=== PATIENT | female | born 1960 | race American Indian/Alaskan Native ===

== ENCOUNTER 2016-11-25 12:14 | Emergency (ER) | payer MEDICAID ==
[2016-11-25] MEDS ORDERED: LIDOCAINE-MPF 1% 5 ML VIAL ONE (14:02)
[2016-11-25] MEDS ORDERED: BACITRACIN OINT TOP ONE (14:17)
== END 2016-11-25 14:31 | disposition home or self-care (01) ==
DX: S01.81XA Laceration without foreign body of other part of head, initial encounter (principal); W01.0XXA Fall on same level from slipping, tripping and stumbling without subsequent striking against object, initial encounter; Y92.009 Unspecified place in unspecified non-institutional (private) residence as the place of occurrence of the external cause; F17.200 Nicotine dependence, unspecified, uncomplicated
CPT/HCPCS: 12013; 99282; 99283; A9270

== ENCOUNTER 2017-02-07 17:12 | Outpatient (CLI) | payer MEDICAID | END 2017-02-07 17:13 | disposition home or self-care (01) | DX: B18.2 Chronic viral hepatitis C (principal) ==

== ENCOUNTER 2017-04-15 13:40 | Outpatient (CLI) | payer MEDICAID ==
[2017-04-15 13:34] LABS: INR 0.9 (0.8-1.2); PT - PROTHROMBIN TIME 9.9 secs (9.9-12.6)
[2017-04-15 13:41] LABS: ALBUMIN/GLOBULIN RATIO 1.2 (1.0-2.2); BILIRUBIN,TOTAL 0.9 mg/dL (0.2-1.0); CALCIUM 9.2 mg/dL (8.5-10.3); CREATININE 0.7 mg/dL (0.4-1.0); POTASSIUM 4.1 mmol/L (3.5-5.0); TOTAL PROTEIN 7.6 g/dL (6.7-8.2)
[2017-04-17 11:41] LABS: TEST RESULT REPORT (())
[2017-04-17 19:21] LABS: TEST RESULT REPORT (())
== END 2017-04-15 13:41 | disposition home or self-care (01) ==
LOC: LAB 13:40
PROVIDERS: ATTEND Internal Medicine Gastroenterology
DX: B18.2 Chronic viral hepatitis C (principal)
CPT/HCPCS: 36415; 80053; 81599; 82172; 82977; 83010; 83883; 85610; 86317; 86704; 87340; 87522

== ENCOUNTER 2017-08-21 15:34 | Outpatient (CLI) | payer MEDICAID ==
--- NOTE | 2017-08-22 12:27 | XRAY Report ---
LEFT SHOULDER: 08/21/2017 No comparison. INDICATION: Left shoulder pain. TECHNIQUE: Three views of the left shoulder. FINDINGS: There is severe degenerative change of the glenohumeral joint with nicg-fv-hhde joint dege neration, hypertrophic changes, and possible intraarticular debris. The AC joint appears grossly unr emarkable. Alignment is near anatomic. No acute bone findings are seen. IMPRESSION: SEVERE GLENOHUMERAL OSTEOARTHRITIS. JOB #: [id number] EXT JOB #:[id number]
== END 2017-08-21 15:35 | disposition home or self-care (01) ==
LOC: DI.N 15:34
PROVIDERS: ATTEND Family Medicine
DX: M19.012 Primary osteoarthritis, left shoulder (principal)

== ENCOUNTER 2020-11-08 22:57 | Emergency (ER) | payer MEDICAID ==
--- NOTE | 2020-11-09 00:57 | ED Physician Documentation ---
PD HPI HEENT - History obtained from History obtained from: Patient - History of Present Illness Timing - onset: How many days ago (4-5) Timing - duration: Days (4-5) Timing - details: Gradual onset, Still present Location: Tooth, Other (chin and submandibular area) Worsens: Swalllowing, Other (palpation) Associated symptoms: Facial swelling (submandibular and chin area). No: Fever, Congestion Similar symptoms before: Has not had sx before Review of Systems Constitutional: denies: Fever Nose: denies: Rhinorrhea / runny nose, Congestion Throat: denies: Sore throat Cardiac: denies: Chest pain / pressure Respiratory: denies: Dyspnea, Cough GI: denies: Nausea, Vomiting PD PAST MEDICAL HISTORY - Past Medical History Cardiovascular: None Respiratory: None Endocrine/Autoimmune: None Musculoskeletal: Osteoarthritis - Past Surgical History Past Surgical History: Yes Ortho: Hip replacement - Present Medications Home Medications: Ambulatory Orders Medication Instructions Recorded Confirmed Chlorhexidine Gluconate [Hibiclens] 10 ml TP DAILY #473 ml 02/13/16 Mupirocin 1 applic TP TID #15 oint...g. 02/13/16 Permethrin [Elimite] 60 gm TP ONCE #0 cream..g. 02/13/16 Sulfamethoxazole/Trimethoprim 1 each PO BID #14 tablet 02/13/16 [Bactrim Ds Tablet] Clindamycin [Cleocin] 300 mg PO TID 7 Days #20 capsule 11/09/20 Hydrocodone/Acetaminophen [[place] 1 each PO Q6H PRN #20 tablet 11/09/20 5-325 Tablet] - Allergies Allergies/Adverse Reactions: Allergies Allergy/AdvReac Type Severity Reaction Status Date / Time Penicillins Allergy Rash Verified 03/25/14 13:38 - Social History Does the pt smoke?: Yes Smoking Status: Current every day smoker Does the pt drink ETOH?: Yes Does the pt have substance abuse?: No - Immunizations Immunizations are current?: Yes PD ED PE NORMAL - Vitals Vital signs reviewed: Yes - General General: Alert and oriented X 3, No acute distress, Well developed/nourished - HEENT HEENT: Pharynx benign. No: Dentition benign (teeth with cavities. Lower front teeth tender to palpation. There is swelling along the gum. Submandibular area with tenderness and fullness. No swelling in anterior neck. ) - Neck Neck: Supple, no meningeal sign, No adenopathy, Other (bedside US of the submandibular area does not have any focal fluid collection, just tissue swelling. ) - Cardiac Cardiac: RRR, No murmur - Respiratory Respiratory: Clear bilaterally - Abdomen Abdomen: Soft, Non tender - Derm Derm: Normal color, Warm and dry, No rash Results - Vitals Vitals: Oxygen O2 Source Room air PD MEDICAL DECISION MAKING - ED course Complexity details: considered differential (swelling lower front gum and teeth pain, and also swelling of chin/submandibular with bedside U/S showing swelling without local abscess. ), d/w patient Departure - Departure Disposition: 01 Home, Self Care Clinical Impression: Infected dental caries Condition: Stable Record reviewed to determine appropriate education?: Yes Instructions: ED Abscess Tooth Prescriptions: Clindamycin [Cleocin] 300 mg PO TID 7 Days #20 capsule Hydrocodone/Acetaminophen [[place] 5-325 Tablet] 1 each PO Q6H PRN #20 tablet PRN Reason: Pain Comments: Rinse with antiseptic mouth rinse several times daily. Clindamycin antibiotic as directed for the next week for the infection. Tylenol or ibuprofen if needed for pains and add hydrocodone if needed for worse pain. Warm compresses to the chin periodically to improve blood flow and help fight infection. Recheck if not improving well over the next several days. Follow-up with dental clinic in the near future for more definitive care of the dental cavities that led to the infection. Discharge Date/Time: 11/09/20 01:35
[2020-11-09] MEDS ORDERED: CLINDAMYCIN 150 MG CAPSULE PO STA (01:10)
[2020-11-09] MEDS ORDERED: IBUPROFEN 600 MG TABLET PO STA (01:10)
[2020-11-09] MEDS ORDERED: HYDROcod/ACETAM 5/325 MG TABLET PO STA (01:10)
[2020-11-09 01:37] VITALS: BP 128/72
--- OUTSIDE RECORDS SUMMARY | 2020-11-09 04:56 | EXTERNAL MEDICAL SUMMARY RPT | Continuity of Care Document ---
:1960 Demographics Phone Unavailable Preferred Language Unknown Marital Status Unknown Yarsanism Affiliation Unknown Race Unknown Ethnic Group Unknown Author Organization [place] Address [address] [place] [address] Phone Care Team Providers Name Role Phone Tory Rodarte Unavailable Unavailable Darinel Hicks Unavailable Unavailable Problems date description facility 2015-01-19 10:17 UNSPECIFIED VIRAL HEPATITIS C [facility] WITHOUT HEPATIC COMA 2015-01-19 10:17 LEUKOCYTOSIS, UNSPECIFIED [facility] 2016-11-25 12:14 NICOTINE DEPENDENCE, UNSPECIFIED, [facility]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 2016-11-25 12:14 LACERATION W/O FOREIGN BODY OF OTH [facility] PART OF HEAD, INIT ENCNTR 2016-11-25 12:14 FALL SAME LEV FROM SLIP/TRIP W/O [facility] STRIKE AGAINST OBJECT, INIT 2016-11-25 12:[address] IN UNSP NON-INSTITUT [facility] (PRIVATE) RESIDENCE PLACE 2017-02-07 17:12 CHRONIC VIRAL HEPATITIS C [facility] 2017-04-15 13:40 CHRONIC VIRAL HEPATITIS C [facility] 2017-08-21 15:34 PRIMARY OSTEOARTHRITIS, LEFT [facility] SHOULDER Allergies date description facility CIPROFLOXACIN [facility] NO KNOWN ENVIRONMENTAL ALLERGIES [facility] SULFA (SULFONAMIDE ANTIBIOTICS) [facility] NO KNOWN ALLERGIES [facility] CODEINE [facility] CIPROFLOXACIN [facility] LISINOPRIL [facility] SULFAMETHOXAZOLE-TRIMETHOPRIM [facility] Penicillins [facility] NO KN[facility] SIMVASTATIN [facility] METFORMIN [facility] LISINOPRIL [facility] NO KNOWN ALLERGIES [facility] CIPROFLOXACIN [facility] SIMVASTATIN [facility] METFORMIN [facility] LISINOPRIL [facility] Social History date description facility [phone]
== END 2020-11-09 01:35 | disposition home or self-care (01) ==
LOC: ED 22:57
DX: K02.9 Dental caries, unspecified (principal)
CPT/HCPCS: 99282; 99284; A9270

== ENCOUNTER 2021-05-24 13:58 | Emergency (ER) | payer MEDICAID ==
[2021-05-24 14:16] VITALS: BP 143/94
--- NOTE | 2021-05-24 14:50 | ED Physician Documentation ---
PD HPI LOWER EXT INJURY - Stated complaint Stated Complaint: R LEG PX - Chief complaint Chief Complaint: Ext Problem - History obtained from History obtained from: Patient - Additional information Additional information: Patient comes emergency department chief complaint of right knee pain for about the last week. She states that she did not have any specific injury but that she has had trouble with her knees in the past. She has been trying to ride her bike to see if it would get better but it just seems to be getting worse. She denies any calf pain or swelling. She states that she has not felt any clicking or popping. Most of her pain and swelling is medial. She can bear weight but it does not feel very good to fully extend. Patient also states that hurts too much to fully flex. Review of Systems Ten Systems: 10 systems reviewed and negative Constitutional: reports: Reviewed and negative Eyes: reports: Reviewed and negative Ears: reports: Reviewed and negative Nose: reports: Reviewed and negative Throat: reports: Reviewed and negative Cardiac: reports: Reviewed and negative Respiratory: reports: Reviewed and negative GI: reports: Reviewed and negative : reports: Reviewed and negative Skin: reports: Reviewed and negative Musculoskeletal: reports: Joint pain, Joint swelling, Pain with weight bearing Neurologic: reports: Reviewed and negative Psychiatric: reports: Reviewed and negative Endocrine: reports: Reviewed and negative Immunocompromised: reports: Reviewed and negative PD PAST MEDICAL HISTORY - Past Medical History Cardiovascular: None Respiratory: None Endocrine/Autoimmune: None Musculoskeletal: Osteoarthritis - Past Surgical History Past Surgical History: Yes Ortho: Hip replacement - Present Medications Home Medications: Ambulatory Orders Medication Instructions Recorded Confirmed Chlorhexidine Gluconate [Hibiclens] 10 ml TP DAILY #473 ml 02/13/16 Mupirocin 1 applic TP TID #15 oint...g. 02/13/16 Permethrin [Elimite] 60 gm TP ONCE #0 cream..g. 02/13/16 Sulfamethoxazole/Trimethoprim 1 each PO BID #14 tablet 02/13/16 [Bactrim Ds Tablet] Clindamycin [Cleocin] 300 mg PO TID 7 Days #20 capsule 11/09/20 Hydrocodone/Acetaminophen [[place] 1 each PO Q6H PRN #20 tablet 11/09/20 5-325 Tablet] - Allergies Allergies/Adverse Reactions: Allergies Allergy/AdvReac Type Severity Reaction Status Date / Time Penicillins Allergy Rash Verified 05/24/21 14:15 - Social History Does the pt smoke?: Yes Smoking Status: Current every day smoker Does the pt drink ETOH?: Yes Does the pt have substance abuse?: No - Immunizations Immunizations are current?: Yes PD ED PE NORMAL - Vitals Vital signs reviewed: Yes - General General: Alert and oriented X 3, No acute distress, Well developed/nourished - HEENT HEENT: Atraumatic, PERRL, EOMI, Moist mucous membranes - Neck Neck: Supple, no meningeal sign - Cardiac Cardiac: Strong equal pulses - Respiratory Respiratory: No respiratory distress - Derm Derm: Normal color, Warm and dry, No rash - Extremities Extremities: No deformity, Other (Mild edema medial right knee. No knee instability. Patient bears weight but walks with halting gait.) - Neuro Neuro: Alert and oriented X 3 - Psych Psych: Normal mood, Normal affect Results - Vitals Vitals: Vital Signs - 24 hr 05/24/21 14:12 Temperature 36.6 C Heart Rate 104 H Respiratory 14 Rate Blood Pressure 143/94 H O2 Saturation 97 Oxygen O2 Source Room air - Rads (name of study) knee, R Radiology: Final report received (Osteoarthritis.), EMP read indepedently, See rad report PD MEDICAL DECISION MAKING - ED course Complexity details: reviewed results, re-evaluated patient, considered differential, d/w patient ED course: Patient was worked up with x-ray of right knee, which showed moderate osteoarthritis. We discussed symptomatic management at home and follow-up as an outpatient. We have discussed the usual indications for return. Departure - Departure Disposition: 01 Home, Self Care Clinical Impression: Osteoarthritis of right knee Qualifiers: Osteoarthritis type: primary Qualified Code(s): M17.11 - Unilateral primary osteoarthritis, right knee Condition: Stable Instructions: ED Degenerative Joint Disease Comments: Your knee x-ray shows some arthritis but otherwise, looks fairly good. Please take anti-inflammatories like ibuprofen and apply ice packs several times a day for 20 to 30 minutes at a time. You may walk around and use your knee as much as possible, though try to avoid heavily strenuous activities until the inflammation dies down. You may purchase a neoprene sleeve [id number] at any freestanding pharmacies such as [facility] or [facility], or at stores that contain pharmacies, such as [facility], or [facility]. Please follow-up with your doctor if you do not notice any improvement in the next couple of weeks. Discharge Date/Time: 05/24/21 15:36
--- NOTE | 2021-05-24 15:14 | XRAY Report ---
PROCEDURE: Knee 3 View RT INDICATIONS: knee pain TECHNIQUE: 3 views of the right knee(s) were acquired. COMPARISON: None. FINDINGS: Bones: No fractures or dislocations. Mild tricompartmental osteoarthritis is seen. No suspicious bon y lesions. Soft tissues: Mild to moderate suprapatellar joint effusion is noted. No suspicious soft tissue calc ifications. IMPRESSION: Mild tricompartmental osteoarthritis and mild to moderate suprapatellar joint effusion. No fracture or dislocation. Reviewed by: Leo Ordoñez MD on 05/24/2021 3:13 PM PDT Approved by: Leo Ordoñez MD on 05/24/2021 3:13 PM PDT Station ID: [id number]
== END 2021-05-24 15:36 | disposition home or self-care (01) ==
LOC: ED 13:58
DX: M17.11 Unilateral primary osteoarthritis, right knee (principal); F17.200 Nicotine dependence, unspecified, uncomplicated
CPT/HCPCS: 99283; 99284

== ENCOUNTER 2023-04-30 15:52 | Emergency (ER) | payer MEDICAID ==
[2023-04-30 16:05] VITALS: BP 150/98
--- NOTE | 2023-04-30 16:36 | ED Physician Documentation ---
PD HPI HEENT - Stated complaint Stated Complaint: RT MOUTH PX - Chief complaint Chief Complaint: Heent - History obtained from History obtained from: Patient - History of Present Illness Timing - onset: Yesterday Timing - duration: Days (2) Timing - details: Abrupt onset, Still present Location: Tooth (right upper incisor) Worsens: Everything Associated symptoms: Facial swelling (right maxillary area.). No: Fever, Congestion, Headache Recently seen: Not recently seen Review of Systems Constitutional: denies: Fever, Chills Throat: reports: Dental pain / toothache. denies: Sore throat PD PAST MEDICAL HISTORY - Past Medical History Cardiovascular: None Respiratory: None Endocrine/Autoimmune: None Musculoskeletal: Osteoarthritis - Past Surgical History Past Surgical History: Yes Ortho: Hip replacement - Present Medications Home Medications: Ambulatory Orders Medication Instructions Recorded Confirmed Chlorhexidine Gluconate [Hibiclens] 10 ml TP DAILY #473 ml 02/13/16 Mupirocin 1 applic TP TID #15 oint...g. 02/13/16 Permethrin [Elimite] 60 gm TP ONCE #0 cream..g. 02/13/16 Sulfamethoxazole/Trimethoprim 1 each PO BID #14 tablet 02/13/16 [Bactrim Ds Tablet] Clindamycin [Cleocin] 300 mg PO TID 7 Days #20 capsule 11/09/20 Hydrocodone/Acetaminophen [[place] 1 each PO Q6H PRN #20 tablet 11/09/20 5-325 Tablet] HYDROcod/ACETAM 5/325 [[place] 5/325] 1 ea PO Q6H PRN #10 tablet 04/30/23 clindamycin HCL [Clindamycin HCl] 300 mg PO TID 6 Days #18 cap 04/30/23 - Allergies Allergies/Adverse Reactions: Allergies Allergy/AdvReac Type Severity Reaction Status Date / Time Penicillins Allergy Rash Verified 04/30/23 15:59 - Social History Does the pt smoke?: Yes Smoking Status: Current every day smoker Does the pt drink ETOH?: Yes Does the pt have substance abuse?: No - Immunizations Immunizations are current?: Yes - POLST Patient has POLST: No PD ED PE NORMAL - Vitals Vital signs reviewed: Yes - General General: Alert and oriented X 3, No acute distress, Well developed/nourished - HEENT HEENT: Pharynx benign. No: Dentition benign (multiple caries and several missing teeth. Has tooth with decay right upper incisor area, with swelling but not fluctuance of buccal side guingiva. Tender. ) - Neck Neck: No adenopathy - Cardiac Cardiac: RRR, No murmur Results - Vitals Vitals: Vital Signs - 24 hr 04/30/23 15:59 Temperature 36.8 C Heart Rate 103 H Respiratory 16 Rate Blood Pressure 150/98 H O2 Saturation 97 Oxygen O2 Source Room air PD Medical Decision Making - ED course Complexity details: considered differential (dental pain with gingical swelling and tender. No fluctuance. Can treat as infection and she will subsequently need to follow up with dental clinic for more definiticae care of the teeth. ), d/w patient Departure - Departure Disposition: 01 Home, Self Care Clinical Impression: Dental abscess, Pain, dental Condition: Stable Record reviewed to determine appropriate education?: Yes Instructions: ED Abscess Dental Prescriptions: clindamycin HCL [Clindamycin HCl] 300 mg PO TID 6 Days #18 cap HYDROcod/ACETAM 5/325 [[place] 5/325] 1 ea PO Q6H PRN #10 tablet PRN Reason: Pain Comments: You do have swelling and tenderness along the gum at the base of that tooth. This looks to be a localized infection/abscess. Its not large enough to seem to need draining at this point. We can treated with antibiotics and anti- inflammatories. At Tylenol every 4-6 hours as needed for pain and hydrocodone every 6 hours if needed for worse pain. You were given a first dose here and some pain medicine. 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 Continue with the ibuprofen 2 to 3 tablets twice daily with food over the next several days as well. I am prescribing a short course of narcotic pain medication for you. These are potentially dangerous and addictive medications that should be used carefully. These medications may constipate you. Take an zxvo-apv-jexsylr stool softener such as docusate twice daily with plenty of water while taking these medications. If you go 24 hours without a bowel movement, take yjrn-flu-[id number] MiraLAX, per package instructions. Do not drink or drive while taking these medications. If you received narcotic or sedating medications while in the emergency department do not drive for 24 hours. Store this medication in a safe, secure place and out of reach of children. It is a violation of federal law to give or sell this medication to another person or to use in a manner other than prescribed. The ED will not refill narcotic prescriptions, including prescriptions lost or stolen. You can dispose of unwanted medications at the [facility]'s office or at several pharmacies such as [facility]. You will need to follow-up with a dentist for more definitive care of the teeth though the short-term goal is just clearing the infection as above. Discharge Date/Time: 04/30/23 17:01
[2023-04-30] MEDS: HYDROcod/ACET 5/325 Prepack 4 PO STA (16:59)
[2023-04-30] MEDS: CLINDAMYCIN 150 MG CAPSULE PO STA (16:59)
[2023-04-30] MEDS: HYDROcod/ACETAM 5/325 MG TABLET PO STA (16:59)
== END 2023-04-30 17:01 | disposition home or self-care (01) ==
LOC: ED 15:52
DX: K04.7 Periapical abscess without sinus (principal); F17.200 Nicotine dependence, unspecified, uncomplicated; Z79.899 Other long term (current) drug therapy
CPT/HCPCS: 99282; 99283

== ENCOUNTER 2023-06-25 21:34 | Emergency (ER) | payer MEDICAID ==
[2023-06-25 21:58] VITALS: BP 118/87; O2SAT 96
== END 2023-06-26 00:57 | disposition left against medical advice (07) ==
LOC: ED 21:34
DX: Z53.21 Procedure and treatment not carried out due to patient leaving prior to being seen by health care provider (principal)

== ENCOUNTER 2023-06-26 19:36 | Emergency (ER) | payer MEDICAID ==
[2023-06-27 11:00] VITALS: BP 140/90; O2SAT 97
== END 2023-06-26 21:00 | disposition left against medical advice (07) ==
LOC: ED 19:36
DX: Z53.21 Procedure and treatment not carried out due to patient leaving prior to being seen by health care provider (principal)